=== PATIENT | female | born 1990 | race Caucasian/White ===

== ENCOUNTER 2022-08-19 20:19 | Emergency (ER) | payer SELFPAY ==
[2022-08-19] MEDS ORDERED: Sodium Chloride 0.9% 1,000 ML IV ONE (22:18)
[2022-08-19] MEDS ORDERED: Ondansetron 4 MG/2 ML SDV IVPUSH ONE (22:18)
[2022-08-19 22:41] LABS: BASOPHILS PERCENT AUTO 0.1 % (0.0-1.5); EOSINOPHILS ABSOLUTE AUTO 0.2 K/uL (0.0-0.7); HEMATOCRIT 40.5 % (36.0-46.0); HEMOGLOBIN 14.3 g/dL (12.0-16.0); LYMPHOCYTES ABSOLUTE AUTO 1.2 K/uL (0.6-2.4); LYMPHOCYTES PERCENT AUTO 7.4 % (16.0-40.0); MEAN CORPUSCULAR HEMOGLOBIN 28.4 pg (27.0-32.0); MEAN CORPUSCULAR HGB CONC 35.3 g/dL (31.0-37.0); MEAN CORPUSCULAR VOLUME 80.5 fL (80.0-98.0); MONOCYTES ABSOLUTE AUTO 1.3 K/uL (0.0-0.8); MONOCYTES PERCENT AUTO 8.3 % (0.0-15.0); NEUTROPHILS ABSOLUTE AUTO 12.9 K/uL (1.4-5.7); NEUTROPHILS PERCENT AUTO 83.2 % (48.0-80.0); NRBC ABSOLUTE 0 K/uL; PLATELET COUNT,PLT 371 K/uL (150-400); RED BLOOD CELL COUNT 5.03 M/uL (4.30-5.90); WHITE BLOOD CELL COUNT,WBC 15.55 K/uL (4.0-11.0)
[2022-08-19] MEDS ORDERED: methylPREDNISolone Sodium Succinate 125 MG/2 ML SDV IVPUSH ONE (23:00)
[2022-08-19] MEDS ORDERED: Ciprofloxacin in D5W 400 MG in Premix Bag 1 BAG IV STA ×2 (23:00)
[2022-08-19 23:04] LABS: A/G RATIO 0.8 (0.9-1.6); ALBUMIN 3.1 g/dL (3.4-5.0); BILIRUBIN TOTAL 1.1 mg/dL (0.2-1.0); CALCIUM 8.7 mg/dL (8.5-10.1); CREATININE 0.9 mg/dL (0.6-1.0); EST CRCL DRUG DOSING (CG) 76.47 mL/min; MAGNESIUM 1.9 mg/dL (1.8-2.4); POTASSIUM,K 2.7 mmol/L (3.5-5.1); PROTEIN TOTAL,TP 7.2 g/dL (6.4-8.2)
[2022-08-19 23:22] LABS: LACTIC ACID 1.1 mmol/L (0.4-2.0)
[2022-08-19] MEDS ORDERED: Potassium Chloride 20 MEQ Tab.ER PO ONE (23:36)
[2022-08-20] MEDS ORDERED: Sodium Chloride 0.9% 250 ML IV SCH (00:30)
[2022-08-20] MEDS: Potassium Chloride 100 ML IV SCH ×2 (00:31→04:07)
[2022-08-20] MEDS ORDERED: Iopamidol 755 MG/ML 500 ML Multipack Bottle IVPUSH STA (00:37)
== END 2022-08-20 07:17 | disposition home or self-care (01) ==
LOC: MW.ED 20:19
DX: K51.90 Ulcerative colitis, unspecified, without complications (principal)
CPT/HCPCS: 36415; 74177; 80053; 83605; 83690; 83735; 84703; 85025; 93005; 96361; 96365; 96366; 96367; 96375; 99284; A9270; J0744; J2405; J2930; J3480; J7030; J7050; Q9967; 93010